=== PATIENT | female | born 1935 | race Caucasian/White ===

== ENCOUNTER → 2018-07-29 15:32 | Outpatient (CLI) | payer MEDICARE, OTHER ==
[2018-07-29 16:22] LABS: APPEARANCE HAZY (CLEAR); BILIRUBIN NEGATIVE (NEGATIVE); COLOR YELLOW (YELLOW); GLUCOSE NEGATIVE (NEGATIVE); KETONE NEGATIVE (NEGATIVE); NITRITE NEGATIVE (NEGATIVE); PH 5.5 (5.0-6.0); PROTEIN NEGATIVE (NEGATIVE); SPECIFIC GRAVITY 1.005 (1.005-1.020); UROBILINOGEN NORMAL (NORMAL)
== END | disposition home or self-care (01) ==
LOC: D.LABREF 15:32
PROVIDERS: Emergency Medicine
DX: R68.89 Other general symptoms and signs (principal)

== ENCOUNTER 2018-09-16 15:08 | Emergency (ER) | payer MEDICARE, OTHER ==
[~2018-09-16] VITALS: Ht 152.4 cm; Wt 67.3 kg
[2018-09-16 15:21] VITALS: Ht 152.4 cm; Wt 67.3 kg
[2018-09-16] MEDS ORDERED: K-TAB10 MEQ PO (15:26)
[2018-09-16] MEDS ORDERED: VITAMIN D31000 UNIT PO (15:26)
[2018-09-16] MEDS ORDERED: BUTISOL SODIUM30 MG PO (15:27)
[2018-09-16] MEDS ORDERED: COZAAR25 MG PO (15:27)
[2018-09-16] MEDS ORDERED: CELEXA40 MG PO (15:28)
[2018-09-16] MEDS ORDERED: PROTONIX40 MG PO (15:28)
[2018-09-16] MEDS ORDERED: ISOSORBIDE MONO30 M1 PO (15:29)
[2018-09-16] MEDS ORDERED: GORDON'S VITE480 G1 (15:30)
[2018-09-16] MEDS ORDERED: BUMEX2 MG PO (15:30)
[2018-09-16] MEDS ORDERED: GUAIFENESI100 MG/5 M PO (17:45)
[2018-09-16 18:21] VITALS: BP 132/80
== END 2018-09-16 18:22 | disposition home or self-care (01) ==
LOC: D.ER 15:08
DX: R51 Headache (principal)

== ENCOUNTER 2018-10-01 12:02 | Inpatient (IN) | payer MEDICARE, OTHER ==
[~2018-10-01] VITALS: Ht 157.5 cm; Wt 68.6 kg
--- NOTE | ~2018-10-01 | EC ---
PATIENT:NYA LEON DATE OF SERVICE: 10/01/18 SEX: F MEDICAL RECORD: [id number] DATE OF : [birth year] LOCATION:D.M2 D.212 AGE OF PATIENT: 83 ADMISSION DATE: 10/01/18 REFERRING PHYSICIAN: INTERPRETING PHYSICIAN: ADELINE SALVADOR MD ECHOCARDIOGRAM REPORT ECHO CHARGES 4 ECHO COMPLETE Date: 10/02/18 CLINICAL DIAGNOSIS: CHF HX CAD/CABG ECHOCARDIOGRAPHIC MEASUREMENTS (adult normal given) AC root (d.<3.7cm) 3.3 cm LV Septum d (<1.2 cm> 1.5 cm Valve Excursion 1.5 cm LV Septum (systole) 1.7 cm Left Atria (s.<4.0cm> 5.0 cm LVPW d(<1.2cm) 1.3 cm RV (d.<2.3cm) 6.3 cm LVPW (sytole) 1.5 cm LV diastole(<5.6CM) 6.7 cm MV E-F(>70mm/sec) cm LV systole 5.0 cm LVOT Diameter 1.5 cm MV exc.(>10mm) 2.0 cm Est.ejection fraction (50-75%) % DOPPLER: LVIT cm/sec A 75.0 cm/sec E 110 cm/sec LA cm/sec RVSP 30 mmHg LVOT 103 cm/sec AOP1/2T m/s Asc. Ao 141 cm/sec RVOT 109 cm/sec RA cm/sec PA 117 cm/sec AV Gradient Peak 7.99 mmHg AV Mean 5.10 mmHg AV Area 1.3 cm MV Gradient Peak 8.03 mmHg MV Mean 3.14 mmHg MV Area cm COMMENTS: Cross Cut Sawyer: Deny HANSEN Wetlands Technician: 1 Dr. Salvador TAPE# PACS Pericardial Effusion N DATE OF SERVICE: 10/02/2018 PROCEDURE: Echocardiogram. FINDINGS: 1. Left ventricular chamber size is within normal limits. Left ventricular systolic function is normal. Overall ejection fraction estimated at 55%. 2. Left atrium is dilated at 5.0 cm. Right atrium and right ventricular chamber sizes are moderately to severely dilated. 3. Valvular structures. The mitral valve demonstrates definite prolapse of the ECHOCARDIOGRAM REPORT [id number] NYA LEON posterior leaflet. This translates into a ciawmoiv-je-asfchl mitral regurgitation. The remaining valvular structures have normal structure and motion. 4. Doppler interrogation elsewise reveals eslm-bf-emjurkst tricuspid regurgitation, no other valvular insufficiency or stenosis. Pulmonary systolic pressure is estimated at 30 mmHg. 5. No evidence of pericardial effusion or left ventricular thrombus. TRANSINT:[id number] Voice Confirmation ID: [id number] DOCUMENT ID: [id number] ADELINE SALVADOR MD CC: [id number] DICTATION DATE: 10/02/18 1248 RN COMPLIANCE: 10/02/18 1420 ADM IN [facility] [address] [place] [address]
--- NOTE | ~2018-10-01 | CN ---
PATIENT NAME:NYA ALEXANDER MEDICAL RECORD: [id number] : 31 LOCATION:D. D.2129 ADMIT DATE: 10/01/18 ACCOUNT: [id number] CONSULTING PHYSICIAN: ADELINE CASANOVA MD REFERRING PHYSICIAN: ÁNGEL MORRIS MD DATE OF CONSULTATION: 10/01/2018 DIAGNOSES: 1. Shortness of breath, dyspnea on exertion. 2. Pneumonia. 3. Congestive heart failure, chronic systolic dysfunction. 4. Cardiomyopathy. 5. Coronary artery disease. 6. Status post coronary bypass graft surgery. 7. Abnormal ECG. 8. Hypertension. HISTORY OF PRESENT ILLNESS: Ms. Alexander presents with recurrent episodes of shortness of breath. She has been in the hospital 3 times and was treated for pneumonia, but not treated from a cardiac standpoint as well. She has a history of coronary artery disease, coronary bypass graft surgery 20 years ago. Her EKG suggests resting ischemia. She has been told in the past that her heart function is not good and that she has had heart failure. She has not had a recent evaluation of this. PHYSICAL EXAMINATION: GENERAL APPEARANCE: Well-nourished, well-developed, appears stated age. Level of distress, comfortable. PSYCHIATRIC: Mental status, alert, normal affect. Orientation, oriented to time, place and person. EYES: Lids and conjunctiva, noninjected. No discharge, no pallor. ENT: Lips, teeth, gums, normal dentition. Oropharynx, no cyanosis, no pallor. NECK: Carotid arteries, bilateral normal upstroke, no bruits, no thrills. JUGULAR VEINS: No jugular venous pressure or distention. CERVICAL LYMPH NODES: Nontender, nonenlarged. THYROID: Not enlarged. Nontender. No nodules. LUNGS: Respiratory effort, unlabored. CHEST: Normal curvature. No thoracic deformity. No chest wall tenderness. Percussion, resonant. Auscultation, clear. No wheezes, no rales, no rhonchi. CARDIOVASCULAR: Precordial exam, nondisplaced. No heaves or pericardial thrills. Rate and rhythm, regular. Heart sounds, normal S1, normal S2. No S3, no gallop, no rub. Systolic murmur, not heard. Diastolic murmur, not heard. EXTREMITIES: No cyanosis, no edema. Peripheral pulses, full and equal in all extremities, except as noted. No bruits appreciated. ABDOMEN: Soft, nondistended. Normal aorta. No bruit. Nontender. No masses. Liver, nontender, no hepatomegaly. Spleen, nontender, no splenomegaly. MUSCULOSKELETAL: No joint tenderness. No joint swelling. No erythema. NEUROLOGICAL: Normal gait, normal strength, normal tone. SKIN: Warm and dry. OVERALL IMPRESSION: Shortness of breath, dyspnea on exertion. Most likely, this is a combination of congestive heart failure as well as pneumonia. We will evaluate her with echocardiogram for her overall LV function, but most likely this is ischemic based due to her 20-year-old bypass graft or abnormal ECG suggestive of resting ischemia. We will need to proceed with coronary CONSULT REPORT [id number] NYA ALEXANDER A angiography in the future, but at this time we will get her breathing better with diuresis and IV antibiotics, see what her LV function is on the echocardiogram, and then proceed with coronary angiography in the future as well. We will adjust medications depending upon her ejection fraction. TRANSINT:[id number] Voice Confirmation ID: [id number] DOCUMENT ID: [id number] ADELINE CASANOVA MD CC: [id number] DICTATION DATE: 10/01/181957 STRIPPER AND PRINTER: 10/02/18 0023 ADM IN [facility] [address] [place] [address]
--- NOTE | ~2018-10-01 | OP ---
PATIENT NAME: NYA LEON MEDICAL RECORD: [id number] :31 LOCATION:D.M2 D.2129 ADMISSION DATE:10/01/18 SURGEON: ADELINE CASANOVA MD DATE OF OPERATION: 10/04/2018 PROCEDURES: 1. PTCA and stent, left circumflex through patent vein graft. 2. Left heart catheterization. 3. Selective coronary angiography. 4. Vein graft angiography. 5. ENGEL angiography. 6. Left ventriculogram. INDICATION: Angina and coronary artery disease. PROCEDURE IN DETAIL: After informed consent was obtained with detailed description of risks and benefits as well as alternative therapies, the patient elected to proceed with angiogram and angioplasty. The right femoral area was prepped and draped in normal sterile fashion. The right femoral artery was cannulated via modified Seldinger technique with placement of 6-[place] sheath. All catheters were exchanged through this sheath. FINDINGS: Left ventriculogram performed in standard 30-degree DE LA CRUZ view reveals global hypokinesis throughout all segments. Overall ejection fraction is 30% to 35%. SELECTIVE CORONARY ANGIOGRAPHY: 1. Left main is with no significant angiographic disease. 2. Left anterior descending is totally occluded. 3. ENGEL to LAD is widely patent. Distal LAD is widely patent. 4. Left circumflex first obtuse marginal is totally occluded. 5. Vein graft to the marginal is widely patent; however, the obtuse marginal has 99% stenosis after the patent vein graft. 6. Right coronary is totally occluded. 7. Vein graft to the right coronary is totally occluded. PTCA AND STENT OF THE LEFT CIRCUMFLEX: Through the patent vein graft, the circumflex was addressed with a 2.0 x 18 mm Pj stent. Result was 0% residual stenosis. OVERALL IMPRESSION: Successful PTCA and stent of the left circumflex, going from 99% initial stenosis to 0% residual. TRANSINT:[id number] Voice Confirmation ID: [id number] DOCUMENT ID: [id number] ADELINE CASANOVA MD CC: [id number] DICTATION DATE: 10/04/18 165 BILLBOARD POSTER HELPER: 10/04/18 1830 ADM IN [place] [id number]
--- NOTE | ~2018-10-01 | HEMODYNAMI ---
PATIENT:NYA LEON MEDICAL RECORD: [id number] : 31 LOCATION:[address] ADMISSION DATE: 10/01/18 Generatedon:10/04/201816:50 Patient name: NYA LEON Patient #: [id number] SSN: DO B: 1935 Date of study: 10/04/2018 Page: Of Hemodynamic Procedure Report Patient Data Patient Demographics Procedure consent was obtained First Name: NYA Gender: Female Last Name: EDWARD : 1935 [facility] Initial: A Age: 83 year(s) Patient #: [id number] Race: Unknown Additional ID: [id number] Contact details [address]: [address] [place] [address] State: [place] City: [place] Zip code: [address] Past Medical History Allergies: No known allergies Admission Admission Data Admission Date: 10/01/2018 Admission Time: 14:26 Room #: 2129 Lab Results Lab Result Date: 10/04/2018 Lab Result Time: 0:00 Biochemistry Name Units Result Min Max BUN mg/dl 16 --(---*)-- 7 18 Creatinine mg/dl 0.9 --(-*--)-- 0.6 1.3 CBC Name Units Result Min Max Hemoglobin g/dl 11.1 *-(----)-- 13.5 17.5 Procedure Procedure Types Cath Procedure Diagnostic Procedure LHC LHC w/Coronaries w/Grafts PCI Procedure AMI/SVG/CARBON ELECTRODES SUPERVISOR PTCA or Stent SVG-BMS/GIRISH Initial Procedure Description Procedure Date Procedure Date: 10/04/2018 Procedure Start Time: 16:11 Procedure End Time: 16:50 Procedure Staff Name Function Steven Salvador MD Performing Physician Frank Philip RT Monitor Chata Dinh RN Nurse Denis Hennessy RT Scrub Deion Lizama RN Publication Specialist Procedure Data Cath Procedure Fluoroscopy Diagnostic fluoroscopy Total fluoroscopy Time: 7.4 time: 7.4 min min Diagnostic fluoroscopy Total fluoroscopy dose: 925 dose: 925 mGy mGy Contrast Material Contrast Material Type Amount (ml) Isovue 300 160 Entry Location Entry Primary Successful Side Size Upsize Upsize Entry Closure Succes sful Closure Location (Fr) 1 (Fr) 2 (Fr) Remarks Device Remarks Femoral Right 5 Fr 6 Fr Exoseal artery Short Estimated blood loss: 10 ml Diagnostic catheters Device Type Used For End Catheter Placement MULTIPACK Pigtail 5 Fr Procedure catheter MULTIPACK JL 4.0 5Fr Procedure catheter MULTIPACK 3DRC 5Fr Procedure catheter DIAGNOSTIC AR2 MOD 5 Fr Procedure catheter ([id number]) Procedure Complications No complications Procedure Medications Medication Administration Route Dosage Oxygen etCO2 Nasal cannula 2 l/min Heparin Flush Bag added to field 2 bags (1000units/500ml NS) 0.9% NaCl I.V. 100 ml/hr Lidocaine 2% added to field 20 Radial Cocktail added to field 1 syringe (Verapomil 2mg/Nitro 400mcg/Heparin 1500units) Versed I.V. 2 mg Fentanyl I.V. 50 mcg Heparin Bolus I.V. 4000 units Integrilin (Bolus I.V. 6.2 ml 2mg/ml) Plavix P.O. 600 mg Fentanyl I.V. 50 mcg Versed I.V. 2 mg Hemodynamics Rest HGB: 11.1 (g/dl) Heart Rate: 84 (bpm) Pressure Samples Time Site Value (mmHg) Purpose Heart Use Rate(bpm) 16:21 AO 127/37(72) Snapshot 72 16:33 AO 109/57(78) Snapshot 72 Snapshots Pre Cath Intra NCS Post Cath Vital Signs Time Heart Resp SPO2 etCO2 NIBP (mmHg) Rhythm Pain Sedation Rate (ipm) (%) (mmHg) Status Level (bpm) 16:00:29 89 16 97 30 147/75(110) NSR 0 (11) 10(A) , No pain 16:04:50 82 17 97 30 124/64(91) NSR 0 (11) 10(A) , No pain 16:09:10 84 16 96 37.7 121/58(84) NSR 0 (11) 10(A) , No pain 16:13:28 81 16 96 39.2 120/66(96) NSR 0 (11) 9(A) , No pain 16:17:52 83 19 96 30 114/59(89) NSR 0 (11) 9(A) , No pain 16:22:08 77 19 98 5.2 117/60(97) NSR 0 (11) 9(A) , No pain 16:26:28 82 16 98 38 123/68(94) NSR 0 (11) 9(A) , No pain 16:30:46 80 17 96 38 123/63(91) NSR 0 (11) 10(A) , No pain 16:35:05 91 15 97 35.4 133/80(98) NSR 0 (11) 9(A) , No pain 16:39:27 90 17 98 0 124/78(111) NSR 0 (11) 9(A) , No pain 16:43:49 95 18 97 0 126/72(98) NSR 0 (11) 9(A) , No pain 16:48:07 92 17 98 0 137/84(113) NSR 0 (11) 10(A) , No pain Medications Time Medication Route Dose Verified Delivered Reason Not es Effectiveness by by 15:57:13 Oxygen etCO2 2 l/min Steven Albarran Per physician Nasal [place] Lizama RN cannula 15:57:20 Heparin Flush added 2 bags Steven Albarran used for Bag to [place] Lizama RN procedure (1000units/500ml field NS) 15:57:29 0.9% NaCl I.V. 100 Stevenkhushbu Albarran Per physician ml/hr [place] Lizama RN 15:57:41 Lidocaine 2% added 20ml Steven Albarran for local to vial [place] Lizama RN anesthetic field 16:02:29 Radial Cocktail added 1 Steven Albarran used for (Verapomil to syringe [place]esto Lizama scorekeeper 2mg/Nitro field 400mcg/Heparin 1500units) 16:10:30 Versed I.V. 2 mg Steven Márquezyla for sedation Modesto Dinh RN 16:10:36 Fentanyl I.V. 50 mcg Steven Chata for sedation [place] Dinh RN 16:26:21 Heparin Bolus I.V. 4000 Steven Chata for alex ified units Modesto Dinh anticoagulation with Dr. MAGDALENO Salvador 16:26:36 Integrilin I.V. 6.2 ml Steven Márquezyla for was sandi (Bolus 2mg/ml) Modesto Dinh antiplatelet 3.7mL RN therapy 16:28:28 Plavix P.O. 600 mg Steven Márquezyla for [place] Dinh antiplatelet RN therapy 16:30:45 Fentanyl I.V. 50 mcg Steven Brizuela for sedation Modesto Dinh RN 16:30:56 Versed I.V. 2 mg Steven Márquezyla for sedation Mod[place] Dinh RN Procedure Log Time Note 15:30:10 Deion Lizama RN sent for patient. Start room use. 15:46:11 Time tracking: Regular hours (M-F 7:00 - 5:00) 15:46:15 Plan of Care:Hemodynamics will remain stable., Cardiac rhythm will remain stable., Comfort level will be maintained., Respiratory function will remain adequate., Patient/ family verbilizes understanding of procedure., Procedure tolerated without complication., Recovers from procedure without complications.. 15:57:13 Oxygen 2 l/min etCO2 Nasal cannula was administered by Deion Lizama RN; Per physician; 15:57:20 Heparin Flush Bag (1000units/500ml NS) 2 bags added to field was administered by Deion Lizama RN; used for procedure; 15:57:29 0.9% NaCl 100 ml/hr I.V. was administered by Deion Lizama RN; Per physician; 15:57:41 Lidocaine 2% 20ml vial added to field was administered by Deion Lizama RN; for local anesthetic; 15:59:12 Patient received from PCU to CCL 1 Alert and oriented. Tansferred to table in Supine position. 15:59:13 Warm blankets applied, and jony hugger turned on for patient comfort. 15:59:13 Correct patient and procedure confirmed by team. 15:59:15 Signed procedure consent form obtained from patient. 15:59:16 ECG and BP/O2 sat monitors applied to patient. 15:59:16 Vital chart was started 15:59:17 Baseline sample Acquired. 15:59:21 Rhythm: sinus rhythm 15:59:24 Full Disclosure recording started 15:59:30 H&P Date Dictated: 10/04/2018 Within 30 days and on chart.. 15:59:31 Pre-procedure instructions explained to patient. 15:59:33 Pre-op teaching completed and patient verbalized understanding. 16:00:59 Family in waiting room. 16:01:01 Patient NPO since Midnight. 16:01:08 Patient allergic to No known allergies 16:01:11 Is the patient allergic to Iodine/contrast media? No. 16:01:17 Is patient on blood thinner?No 16:01:18 Patient diabetic? No. 16:01:20 ----Pre-sedation anethsthesia assessment.---- 16:01:23 Previous problem with sedation/anesthesia? No ? 16:01:25 Snore? Yes 16:01:32 Sleep apnea? No 16::39 Deviated septum? No 16::40 Opens mouth fully? Yes 16:01:42 Sticks out tongue? Yes 16:01:55 Airway obstruction? Yes COPD 16:02:00 Dentures? No ? 16:02:25 Pre procedure: right dorsailis pedis pulse 2+ Normal; easily identifiable; not easily obliterated 16:02:29 Radial Cocktail (Verapomil 2mg/Nitro 400mcg/Heparin 1500units) 1 syringe added to field was administered by Deion Lizama RN; used for procedure; 16:02:44 Modified Salazar's test Ulnar < 7 seconds 16:02:48 Patient pain scale 0/10 ?. 16:06:50 IV patent on arrival in left forearm with 0.9% NaCl at KVO. 16:06:52 Lab results completed and on chart. 16:07:01 Right Radial & Right Groin area was prepped with chlora-prep and draped in sterile fashion 16:07:03 Sharps counted by scrub and verified by R.N. 16:07:04 Alarms reviewed by R. N. 16:07:21 --------ALL STOP TIME OUT------ 16:07:22 Final Timeout: patient, procedure, and site verified with staff and physician. All members of the team are in agreement. 16:07:24 Right Radial & Right Groin site verified by team. 16:07:33 Maximum allowable Isovue 300 dose 300ml. Physician notified. (300ml for normal creatinines. For patients with creatinine of 1.7 or higher multiply weight(kg) x 5 divided by creatinine.) 16:07:43 Fire Safety Assessment: A--An alcohol-based skin anteseptic being used preoperatively., C--Open oxygen or nitrous oxide is being used., D--An ESU, laser, or fiber-optic light is being used. 16:07:46 Physical assessment completed. ASA score P 2 - A patient with mild systemic disease as per Steven Salvador MD. 16:07:51 Sedation plan: IV Moderate Sedation Medication:Versed, Fentanyl 16:08:04 Use device set Radial Dx or PCI 16:08:06 Tegaderm 4 x 4 (1626W) opened to sterile field. 16:08:07 ACIST Manifold (57638) opened to sterile field. 16:08:07 ACIST Hand Control (73610) opened to sterile field. 16:08:09 ACIST Syringe (72378) opened to sterile field. 16:08:09 Medline Cath Pack ([id number]) opened to sterile field. 16:08:10 Bag Decanter (2002S) opened to sterile field. 16:08:11 DIAGNOSTIC WIRE .035 260cm J wire (725583) opened to sterile field. 16:08:12 MBrace Wrist Support ([id number]) opened to sterile field. 16:08:14 SHEATH 6FR Slender (90-1131) opened to sterile field. 16:10:30 Versed 2 mg I.V. was administered by Chata Dinh RN; for sedation; 16:10:36 Fentanyl 50 mcg I.V. was administered by Chata Dinh RN; for sedation; 16:10:59 Procedure started. 16:11:04 Local anesthetic to right radial artery with Lidocaine 2% by Steven Salvador MD.INITIAL ACCESS ONLY 16:12:11 Unable to advance wire due to radial loop. 16:12:17 Local anesthetic to right femoral artery with Lidocaine 2% by Steven Salvador MD.ADDITIONAL ACCESS 16:13:44 A 5 Fr sheath was inserted into the Right Femoral artery 16:20:10 Use device set Multipack Set 16:20:12 DIAGNOSTIC Multipack 5Fr catheter set (SB4823) opened to sterile field. 16:20:13 SHEATH 5FR Emelle (CRW470) opened to sterile field. 16:20:19 A MULTIPACK Pigtail 5 Fr catheter was advanced over the wire and used for Procedure. 16:20:24 LV angiography performed. 16:20:26 LV gram done using DE LA CRUZ 16:20:35 EF : 30 % 16:20:59 Injector settings: Ml/sec: 10, Volume: 20, 16:21:03 Catheter removed. 16:21:09 A MULTIPACK JL 4.0 5Fr catheter was advanced over the wire and used for Procedure. 16:21:19 LCA angiography performed. 16:21:24 Catheter removed. 16:21:42 Use device set MODESTO PCI 16:21:44 SHEATH 6FR Emelle (GEU957) opened to sterile field. 16:21:52 CHOICE PT Extra Support 182cm wire ([id number]) opened to sterile field. 16:21:58 INFLATOR Merit BasixCompak (CZ7307) opened to sterile field. 16:22:14 A MULTIPACK 3DRC 5Fr catheter was advanced over the wire and used for Procedure. 16:22:26 ENGEL to Diag angiography performed. 16:23:04 RCA angiography performed. 16:23:23 Catheter removed. 16:23:34 A DIAGNOSTIC AR2 MOD 5 Fr catheter ([id number]) was advanced over the wire and used for Procedure. 16:23:51 SVG to Circ angiography performed. 16:24:30 SVG to RCA occluded. 16:24:34 Catheter removed. 16:24:37 GUIDE 6FR AR 2.0 catheter ([id number]) opened to sterile field. 16:25:50 Sheath upsized to a 6 Fr Short. 16:26:01 6 Fr AR 2 guide catheter was inserted over the wire 16:26:21 Heparin Bolus 4000 units I.V. was administered by Chata Dinh RN; for anticoagulation; verified with Dr. Salvador 16:26:36 Integrilin (Bolus 2mg/ml) 6.2 ml I.V. was administered by Chata Dinh RN; for antiplatelet therapy; wasted 3.7mL 16::59 CPTXS wire advanced. 16:27:49 Lab Result : Hemoglobin 11.1 g/dl 16::49 Lab Result : Creatinine 0.9 mg/dl 16::49 Lab Result : BUN 16 mg/dl 16:28:28 Plavix 600 mg P.O. was administered by Chata Dinh RN; for antiplatelet therapy; 16:28:28 Wire advanced across lesion. 16:29:22 Inflate balloon Inflation number: 1 A EUPHORA 2.0 x 15 Balloon ([id number]) was prepped and advanced across the Aorta Left -> 1st Ob Sultana, then inflated to 15 VISHNU for 0:10 (min:sec). 16:29:42 Multiple inflations made at 15 Atms. 16:30:43 Balloon removed over the wire. 16:30:45 Fentanyl 50 mcg I.V. was administered by Chata Dinh RN; for sedation; 16:30:45 Place stent Inflation Number: 2 A SHITAL RX 2.0 x 18 stent ([id number]) was prepped and advanced across the Aorta Left -> 1st Ob Sultana. The stent was deployed at 11 VISHNU for 0:10 (min:sec). 16:30:56 Versed 2 mg I.V. was administered by Chata Dinh RN; for sedation; 16:36:23 Inflation number: 3 The stent balloon was then re-inflated across the Aorta Left -> 1st Ob Sultana to 8 VISHNU for 5:00 (min:sec). 16:36:35 Timer 1 started at 4:31 PM, stopped at 4:36 PM, duration 00:05:09 sec. 16:36:46 Stent catheter was removed intact over wire. 16:36:47 Wire removed. 16:37:08 CHOICE PT Extra Support J 300cm guide wire ([id number]) opened to sterile field. 16:37:22 CPTXS 300 wire advanced. 16:37:40 Wire advanced across lesion. 16:38:45 Inflate balloon Inflation number: 4 A EMERGE OTW 2.0 x 15 balloon ([id number]) was prepped and advanced across the Aorta Left -> 1st Ob Sultana, then inflated to 8 VISHNU for 0:10 (min:sec). 16:44:59 Inflation number: 5 The EMERGE OTW 2.0 x 15 balloon ([id number]) was reinflated across the Aorta Left -> 1st Ob Sultana, to 8 VISHNU for 5:00 (min:sec). 16:45:36 Timer 1 started at 4:38 PM, stopped at 4:45 PM, duration 00:07:07 sec. 16:47:17 Balloon removed over the wire. 16:47:18 Wire removed. 16:47:19 Guide catheter removed. 16:47:39 EXOSEAL 6Fr (EX600) opened to sterile field. 16:47:51 Sheath removed intact; hemostasis achieved with Exoseal to the Right Femoral artery. 16:47:54 Procedure ended.(Physican Out) 16:48:34 Fluoroscopy time 07.40 minutes. 16:48:39 Fluoroscopy dose: 925 mGy 16:48:39 Flurop Dose total: 925 16:49:22 Contrast amount:Isovue 300 160ml. 16:49:24 Sharps counted by scrub and verified by R.N. 16:49:25 Insertion/operative site no bleeding no hematoma. 16:49:29 Post-op/insertion site Right Femoral artery dressed using a 4 x 4 and Tegaderm. 16:49:31 Post Procedure Pulses reassessed and unchanged 16:49:33 Post-procedure physical assessment completed. ASA score P 2 - A patient with mild systemic disease as per Steven Salvador MD. 16:49:35 Post procedure rhythm: unchanged. 16:49:38 Estimated blood loss: 10 ml 16:49:41 Post procedure instruction explained to patient.Patient verbalizes understanding. 16:49:41 Patient needs reinforcement of post procedure teaching. 16:49:53 Procedure type changed to Cath procedure, Diagnostic procedure, LHC, LHC w/Coronaries w/Grafts, PCI procedure, AMI/SVG/CARBON ELECTRODES SUPERVISOR PTCA or Stent, SVG-BMS/GIRISH Initial 16:49:54 Procedure and supply charges have been captured, reviewed, submitted and are correct. 16:49:58 Procedure Complication : No complications 16:50:01 Vital chart was stopped 16:50:01 See physician's report for complete and final results. 16:50:09 Report given to PCU. 16:50:14 Patient transfered to PCU with Bed. 16:50:17 Procedure ended. 16:50:17 Full Disclosure recording stopped 16:50:26 End room use (Document Last) Intervention Summary Intervention Notes Time ActionType Lesion and Equipment Used Action# Pressure Duration Attributes 16:29:22 Inflate Aorta Left EUPHORA 2.0 x 1 15 00:10 balloon -> 1st Ob 15 Balloon Sultana ([id number]) 16:30:45 Place stent Aorta Left SHITAL RX 2.0 x 2 11 00:10 -> 1st Ob 18 stent Sultana ([id number]) 16:36:23 Reinflate Aorta Left SHITAL RX 2.0 x 3 8 05:00 stent -> 1st Ob 18 stent balloon Sultana ([id number]) 16:38:45 Inflate Aorta Left EMERGE OTW 2.0 4 8 00:10 balloon -> 1st Ob x 15 balloon Sultana ([id number]) 16:44:59 Reinflate Aorta Left EMERGE OTW 2.0 5 8 05:00 balloon -> 1st Ob x 15 balloon Sultana ([id number]) Device Usage Item Name Manufacture Quantity Catalog Number Hospital Part Current M inimal Lot# / Charge Number Stock Stock Serial# Code Tegaderm 4 x 4 3M 1 [id number] 196646 560870 571606 5 (1626W) ACIST Manifold Acist 1 28996 399578 508690 662810 5 (42655) Medical Systems Inc ACIST Hand Acist 1 89178 182998 282745 685860 5 Control Medical (33930) Systems Inc ACIST Syringe Acist 1 03775 232896 297546 581692 2 0 (27862) Medical Systems Inc Medline Cath Medline 1 [id number] 459160 34898 239036 5 Pack (ATVI94450) Bag Decanter Microtek 1 2001S 057848 29986 390975 5 () Medical Inc. DIAGNOSTIC St Dhruv 1 799738 609448 966800 596241 3 0 WIRE .035 260cm J wire (108534) MBrace Wrist Advanced 1 140-0250-00 965463 47171 340714 5 Support Vascular ([id number]) Dynamics SHEATH 6FR Terumo 1 [id number] 233638 231490 415857 5 Slender (80-1060) DIAGNOSTIC Cardinal 1 YL3560 578344 42895 603603 3 0 Multipack 5Fr Health catheter set (TF7917) SHEATH 5FR Terumo 1 JZG453 464887 426474 281116 5 Emelle (DXW620) MULTIPACK Cardinal 1 254760 5 Pigtail 5 Fr Health catheter MULTIPACK JL Cardinal 1 818154 5 4.0 5Fr Health catheter SHEATH 6FR Terumo 1 PVK958 643199 103305 690627 4 0 Emelle (WXG327) CHOICE PT [place] 1 [id number] 740983 454511 183884 5 Extra Support Scientific 182cm wire ([id number]) INFLATOR Merit Merit 1 CB1142 110941 922699 761588 1 5 [facility] (DO9921) MULTIPACK 3DRC Cardinal 1 122617 5 5Fr catheter Health DIAGNOSTIC AR2 Cardinal 1 [id number] 006968 283898 557815 2 0 MOD 5 Fr Health catheter (191733O) GUIDE 6FR AR Medtronic 1 [id number] 125146 49030 574270 1 2.0 catheter (QZ0EJ57) EUPHORA 2.0 x Medtronic 1 [id number] 693008 925222 969539 5 [id number] 15 Balloon ([id number]) SHITAL RX 2.0 x Medtronic 1 [id number] 867277 2389390 124068 5 [id number] 18 stent ([id number]) CHOICE PT [place] 1 [id number] 897643 769378 068061 5 Extra Support Scientific J 300cm guide wire ([id number]) EMERGE OTW 2.0 [place] 1 [id number] 416945 898792 835782 5 [id number] x 15 balloon Scientific ([id number]) EXOSEAL 6Fr Cardinal 1 EX600 557931 236714 270736 1 0 (EX600) Health Signature Audit [place] Stage Time Signature Unsigned Intra-Procedure 10/04/2018 Frank Philip 4:50:46 PM RT(R) Signatures Monitor : Frank Philip RT Signature : Date : Time : [address] [address]
[~2018-10-01 12:02] MED LIST: BUMEX2 MG PO; BUTISOL SODIUM30 MG PO; CELEXA40 MG PO; COZAAR25 MG PO; GORDON'S VITE480 G1; GUAIFENESI100 MG/5 M PO; ISOSORBIDE MONO30 M1 PO; K-TAB10 MEQ PO; PROTONIX40 MG PO; VITAMIN D31000 UNIT PO
[2018-10-01 12:31] LABS: HEMATOCRIT 32.9 % (36.0-48.0); HEMOGLOBIN 10.9 g/dL (12-16); LYMPHOCYTES 18.2 % (15-50); MCH 30.6 pg (26.0-34.0); MCHC 33.1 g/dL (31.0-37.0); MCV 92.4 fL (80.0-100.0); MEAN PLATELET VOLUME 9.6 fL (7.4-10.4); NEUTROPHILS 70.4 % (40-80); PLATELET COUNT 173 10x3/uL (130-400); RBC 3.56 10x6/uL (4.00-5.40); WBC 7.7 10x3/uL (4.8-10.8)
[2018-10-01 12:51] LABS: ALBUMIN 3.8 g/dL (3.4-5.0); ALKALINE PHOSPHATASE 97 U/L (46-116); ALT (SGPT) 18 U/L (10-68); BILIRUBIN - TOTAL 0.72 mg/dL (0.2-1.3); CALC OSMOLALITY 278 mosm/kg (275-300); CALCIUM 9.2 mg/dL (8.5-10.1); CARBON DIOXIDE 32.8 mmol/L (21.0-32.0); CHLORIDE - SERUM 98 mmol/L (98-107); CREATININE - SERUM 0.7 mg/dL (0.6-1.3); GLUCOSE 119 mg/dL (74-106); POTASSIUM - SERUM 3.5 mmol/L (3.5-5.1); PROTEIN - SERUM 8.2 g/dL (6.4-8.2); SODIUM 139 mmol/L (136-145); UREA NITROGEN 12 mg/dL (7-18); eGFR NON AFRICAN AMERICAN 84 mL/min (90-120)
[2018-10-01 13:03] LABS: CKMB 1.6 U/L (0.0-3.6); CREATINE KINASE 99 UL (21-215); PRO BNP 4756 pg/mL (0-450)
[2018-10-01 13:04] LABS: INR 1.05 (0.85-1.17); PROTIME 13.2 SECONDS (11.6-15.0)
[2018-10-01 13:05] LABS: TROPONIN-I < 0.017 ng/mL (0.000-0.060)
[2018-10-01 14:41] VITALS: BP 137/68
--- NOTE | 2018-10-01 17:10 | NUR ---
RECEIVED PT FROM ER. ACCOMPANIED BY FAMILY. PT IS AAO BUT CONFUSED TO SITUATION. PT IS UP WITH ASSIST. FAMILY AT BEDSIDE. RR EVEN AND UNLABORED ON 2L 02. L.FOR PIV IS SALINE LOCKED. NO S/S OF DISTRESS NOTED. QUICK START, MED REQ, AND HISTORY COMPLETED. WILL CTM.
[2018-10-01 17:31] VITALS: BP 118/62; BMI 29.1
--- NOTE | 2018-10-01 19:00 | MORECARE ---
CASE MANAGEMENT DISCHARGE SUMMARY PATIENT: NYA LEON UNIT: [id number] ADM DATE: 10/01/18 AGE: 83 : 33 SEX: F ROOM/BED: D.2129 AUTHOR: MIGUEL GARCIA PHYSICIAN: REFERRING PHYSICIAN: ÁNGEL MORRIS MD DATE OF SERVICE: 10/01/18 Discharge Plan Patient Name: NYA LEON Facility: [facility]:[place] : 1935 Planned Disposition: Home Anticipated Discharge Date: 10/03/18 Discharge Date: Expected LOS: 2 Initial Reviewer: [email or web address] Initial Review Date: 10/01/2018 Generated: 10/01/18 8:00 pm Patient Name: NYA LEON Page [id number] at 1900 All edits/amendments must be made on the electronic document DICTATION DATE: 10/01/181858 TRANSPORTATION DRIVER: VERNON 10/01/181858 RPT#: [id number] DC DATE: STATUS: ADM IN [facility] [address] [place] [address] END OF REPORT
--- NOTE | 2018-10-01 19:08 | MORECARE ---
CASE MANAGEMENT DISCHARGE SUMMARY PATIENT: NYA LEON UNIT: [id number] ADM DATE: 10/01/18 AGE: 83 : 33 SEX: F ROOM/BED: D.3482 AUTHOR: JOSEDOC PHYSICIAN: REFERRING PHYSICIAN: ÁNGEL MORRIS MD DATE OF SERVICE: 10/01/18 Discharge Plan Patient Name: NYA LEON Facility: [facility]:[place] : 1935 Planned Disposition: Home Anticipated Discharge Date: 10/03/18 Discharge Date: Expected LOS: 2 Initial Reviewer: [email or web address] Initial Review Date: 10/01/2018 Generated: 10/01/18 8:07 pm DCP- Discharge Planning Updated by [email or web address]: Cary Carlos on 10/01/18 6:[address] Patient Name: NYA LEON Admission Status: ER Accout number: [id number] Admission Date: 10-01-2018 : 1935 Admission Diagnosis: Attending: ÁNGEL MORRIS Current LOS: 1 Anticipated DC Date: 10-03-2018 Planned Disposition: Home Primary Insurance: MEDICARE A & B Discharge Planning Comments: CM met with patient and her daughter to complete initial dc planning assessment. CM educated patient on the CM role and verbal consent given by patient to complete assessment. Patient lives at her daughter's house and requires assistance with bathing, meals, and medication management. At discharge patient plans to return to her daughters house and feels this is a safe discharge. CM discussed availability of home health, rehab services, and medical equipment. [facility]. GLENNA discussed and patient signed GLENNA form in the ER to resume [facility] at time of discharge. Patient denied further known discharge needs at this time. CM will continue to follow and will assist as needed with dc plans/needs. Writer Producer: Cary Carlos RN,[facility] DCPIA - Discharge Planning Initial Assessment Updated by [email or web address]: Cary Carlos on 10/01/18 7:03 pm * Is the patient Alert and Oriented? Yes * How many steps to enter\exit or inside your home? Three * PCP DR. Acosta * Pharmacy [facility] * Preadmission Environment Home with Family * ADLs Partial Dependent * Partial ADLs (Assistance needed) Bathing Medication Management * Equipment Cane Nebulizer Oxygen Rolling Walker Wheelchair * Other Equipment Blood pressure cuff and pulse ox Patient wears O2 24/7 at home. * List name and contact numbers for known caregivers / representatives who currently or will assist patient after discharge: Shobha Sherman - daughter - [phone] Norman Kelly - daughter - [phone] * Verbal permission to speak to the caregivers and representatives has been obtained from the patient. Yes * Community resources currently utilized Home Health Other * Please name any agencies selected above. [facility] * Additional services required to return to the preadmission environment? No * Can the patient safely return to the preadmission environment? Yes * Has this patient been hospitalized within the prior 30 days at any hospital? No Last DP export: 10/01/18 6:00 p Patient Name: NYA LEON Page 26702 at 1908 All edits/amendments must be made on the electronic document DICTATION DATE: 10/01/181906 IRRIGATION SPECIALIST: VERNON 10/01/181906 RPT#: [id number] DC DATE: STATUS: ADM IN [facility] [address] [place] [address] END OF REPORT
[2018-10-01 19:54] VITALS: BP 128/61
[2018-10-01 23:55] VITALS: BP 106/42
--- NOTE | 2018-10-02 02:34 | NUR ---
RECIEVED UP IN BED WITH O2@ 2 LITERS PER N/C IN PLACE. ALERT AND ORIENTED. VERY [place]. C/O SOB. RT CALLED TO ASSESS AND SAT WNL. PT VERY ANXIOUS. CALLED DR. MORRIS WITH NEW ORDERS FOR BUMEX 2MG IV X ONE NOW. BUMEX GIVEN AND AND PT STATED SHE FELT BETTER. RESP EVEN AND UNLABORED. TELEMETRY IN PLACE. DENIES ANY OTHER NEEDS.
[2018-10-02 02:46] LABS: BASOPHILS 0.5 % (0-2); EOSINOPHILS 4.7 % (0-7); HEMATOCRIT 32.7 % (36.0-48.0); HEMOGLOBIN 10.6 g/dL (12-16); IMMATURE GRANULOCYTES 0.3 % (0-5); LYMPHOCYTES 22.4 % (15-50); MCHC 32.4 g/dL (31.0-37.0); MCV 92.6 fL (80.0-100.0); MEAN PLATELET VOLUME 10.3 fL (7.4-10.4); MONOCYTES 10.5 % (2-11); NEUTROPHILS 61.6 % (40-80); PLATELET COUNT 179 10x3/uL (130-400); RBC 3.53 10x6/uL (4.00-5.40); RDW 14.7 % (11.5-14.5); WBC 7.3 10x3/uL (4.8-10.8)
[2018-10-02 02:56] LABS: CALC OSMOLALITY 275 mosm/kg (275-300); CALCIUM 9.1 mg/dL (8.5-10.1); CARBON DIOXIDE 34.7 mmol/L (21.0-32.0); CHLORIDE - SERUM 98 mmol/L (98-107); CREATININE - SERUM 0.7 mg/dL (0.6-1.3); GLUCOSE 113 mg/dL (74-106); POTASSIUM - SERUM 3.1 mmol/L (3.5-5.1); SODIUM 138 mmol/L (136-145); UREA NITROGEN 11 mg/dL (7-18); eGFR NON AFRICAN AMERICAN 84 mL/min (90-120)
[2018-10-02 03:55] VITALS: BP 130/52
--- NOTE | 2018-10-02 07:15 | NUR ---
REPORT RECIEVED AND MORNING ROUNDING COMPLETE. PT SITTING UP IN BED AND STATES NO NEEDS AT THIS TIME. PT IS HARD OF HEARING. PT IS RECIEVING O2 VIA NC. PT HAS A LEFT FOREARM THAT IS SALINE LOCKED. PT STATES NO NEEDS AT THIS TIME. ASSESMENT DONE. CALL LIGHT WITHIN REACH AND BED IN LOWEST POSITION.
[2018-10-02 08:18] VITALS: BP 129/74
--- NOTE | 2018-10-02 10:49 | NUR ---
I have reviewed this patient and I concur with the Shift Assessment completed by the Licensed Practical Nurse today this shift.
[2018-10-02 12:04] LABS: % SATURATION 26 % (15-55); IRON 72 ug/dl (35-150); TOTAL IRON BIND CAPACITY 273 ug/dl (260-445); UNSAT IRON BIND CAPACITY 201 ug/dl (150-375)
[2018-10-02 12:08] VITALS: BP 114/55
--- NOTE | 2018-10-02 12:30 | NUR ---
PT'S IV LEAKING AROUND INSERTION SITE WHEN FLUSHED. PT STATES STINGS A LITTLE. DC PT'S LEFT FOREARM PIV.
[2018-10-02 12:57] VITALS: Ht 157.5 cm; Wt 68.6 kg
[2018-10-02 17:05] VITALS: BP 117/66
--- NOTE | 2018-10-02 17:09 | NUR ---
PT AND PT FAMILY REFUSES SCD'S BECAUSE PT GETS UP AND WALK THEY ARE WORRIED SHE WILL GET UP AND FORGET AND TRIP AND FALL.
--- NOTE | 2018-10-02 19:24 | NUR ---
INITIAL ROUNDS COMPLETED AT 1915 HRS. PT DENIED ANY DISCOFORT. BED ALARM IN USE.
[2018-10-02 19:44] VITALS: BP 101/53
--- NOTE | 2018-10-02 21:49 | NUR ---
ASSESSMENT COMPLETED AT 1940 HRS. VSS. SR PER CM HR 71. LUNGS DIMINISHED IN BASES BILAT. PT QAWALANGIN. O2 2LNC. LUNGS DIMINISHED IN BASES BILAT. BROWN. WEAK PEDAL PULSES. COMBS DRAINING DARK URINE. PM MED GIVEN. HAS C/O LEG CRAMPS AND OVERALL DISCOMFORT. LOWER LEGS WRAPPED IN HEATED BLANKET. TYLENOL 650MG PO GIVEN. SR UP X2, CALL LIGHT WITHIN REACH AND BED ALARM ON.
[2018-10-02 23:50] VITALS: BP 130/72
--- NOTE | 2018-10-02 23:54 | NUR ---
PT AWAKE; STATES SHE IS FEELING BETTER. SR UP X2,CALL LIGHT WITHIN REACH AND BED ALARM ON.
--- NOTE | 2018-10-03 01:49 | NUR ---
PT RESTING WITH EYES CLOSED. RESP EVEN AND REGULAR. SR UP X2, CALL LIGHT WITHIN REACH AND BED ALARM ON.
[2018-10-03 03:55] VITALS: BP 122/67
--- NOTE | 2018-10-03 04:19 | NUR ---
ASSSITED PT TO BR. GAIT UNSTEADY. LARGE AMOUNT OF FLATUS NOTED. ASSISTED BACK TO BED. SR UP X2, CALL LIGHT WITHIN REACH AND BED ALARM ON.
[2018-10-03 05:26] LABS: BASOPHILS 0.6 % (0-2); EOSINOPHILS 5.7 % (0-7); HEMATOCRIT 34.3 % (36.0-48.0); HEMOGLOBIN 11.1 g/dL (12-16); IMMATURE GRANULOCYTES 0.2 % (0-5); LYMPHOCYTES 20.5 % (15-50); MCH 30.2 pg (26.0-34.0); MCHC 32.4 g/dL (31.0-37.0); MCV 93.5 fL (80.0-100.0); MEAN PLATELET VOLUME 10.4 fL (7.4-10.4); MONOCYTES 12.9 % (2-11); NEUTROPHILS 60.1 % (40-80); PLATELET COUNT 186 10x3/uL (130-400); RBC 3.67 10x6/uL (4.00-5.40); RDW 14.5 % (11.5-14.5); WBC 6.2 10x3/uL (4.8-10.8)
[2018-10-03 05:56] LABS: CALCIUM 8.8 mg/dL (8.5-10.1); CARBON DIOXIDE 33.6 mmol/L (21.0-32.0)
[2018-10-03 05:58] LABS: CREATININE - SERUM 0.9 mg/dL (0.6-1.3); POTASSIUM - SERUM 3.6 mmol/L (3.5-5.1)
--- NOTE | 2018-10-03 06:18 | NUR ---
VSS THROUGHOUT NIGHT. SR PER CM. DENIES ANY LEG CRAMPS THIS AM. NEEDS MET;WILL CONTINUE TO MONITOR.
--- NOTE | 2018-10-03 07:15 | NUR ---
REPORT RECIEVED AND MORNING ROUNDING COMPLETE. PT LAYING IN BED IN SUPINE POSITION. EYES CLOSED BREATHING SHALLOW AND EVEN. PT IS WEARING HER NC AND RECIVEING 3L O2. CALL LIGHT WIHTIN REACH AND BED IN LOWEST POSITION.
--- NOTE | 2018-10-03 07:45 | NUR ---
PT CALLED AND IS COMPLAINING OF CHEST PAIN AND SOB. WENT IN AND ASSESED PT, ALSO ASKED NATHANIEL DOLAN TO COME IN WITH ME. LUNGS CLEAR BUT DIMINISHED. CALLED RT TO COME DO A BREATHING TREATMENT. PT STATES SHE TAKES BREATHING TREATMENTS 4X DAILY AT HOME. WILL CONTINUE TO MONITOR CLOSELY. CALL LIGHT WITHIN REACH.
[2018-10-03 08:34] VITALS: BP 128/78
[2018-10-03 11:20] VITALS: BP 121/67
--- NOTE | 2018-10-03 12:55 | NUR ---
I have reviewed this patient and I concur with the Shift Assessment completed by the Licensed Practical Nurse today this shift.
--- NOTE | 2018-10-03 15:19 | NUR ---
PT DOES NOT MEET COMBS CRITERIA. DISCUSSED WITH NURSE AND COMBS WILL BE REMOVED R/T NURSE DRIVEN PROTOCOL.
[2018-10-03 15:32] VITALS: BP 106/58
--- NOTE | 2018-10-03 17:27 | NUR ---
PER NURSE DRIVEN PROTOCOL REMOVED PT'S COMBS CATH. PT TOLERATED WELL PT ABLE TO GET UP AND USE THE BATHROOM WHEN NEEDED. NO OTHER NEEDS AT THIS TIME CALL LIGHT WITHIN REACH. DAUGHTER AT BEDSIDE.
--- NOTE | 2018-10-03 19:57 | NUR ---
RECIEVED UP IN BED WITH EYES OPEN AND TV ON. ALERT AND ORIENTED X4. ASKED QUESTION ABOUT PROCEDURE TOMORROW. EDUCATED ON PROCEDURE AND VOICED UNDERSTANDING. VERY [place]. BED ALARM IN PLACE. TEELEMETRY IN PLACE. DENIES ANY OTHER NEEDS.
[2018-10-03 21:11] VITALS: BP 98/46
--- NOTE | 2018-10-04 03:03 | NUR ---
RESTING N BED WITH EYES CLSOED, NO S/S OF DISTRESS OBSERVE.
[2018-10-04 03:55] VITALS: BP 123/61
--- NOTE | 2018-10-04 05:03 | NUR ---
IV STARTED TO LEFT WRIST ATTEMPTS X1 WITH 20 GA CATH. SL..
--- NOTE | 2018-10-04 07:23 | NUR ---
REPORT RECEIVED. WILL CONTINUE WITH POC. PT CURRENTLY LYING SEMI FOWLERS. CALL LIGHT W/I REACH. PT IS AAO AND UP WITH ASSIST. RR EVEN AND UNLABORED ON 2L 02. L.WRIST PIV IS SALINE LOCKED. PT IS NPO FOR HEART CATH THIS AM. PT DENIES ANY NEEDS AT THIS TIME. NO S/S OF DISTRESS NOTED. WILL CTM.
[2018-10-04 08:28] VITALS: BP 119/56
[2018-10-04 09:17] LABS: BASOPHILS 0.3 % (0-2); EOSINOPHILS 4.8 % (0-7); HEMOGLOBIN 11.3 g/dL (12-16); IMMATURE GRANULOCYTES 0.1 % (0-5); LYMPHOCYTES 23.1 % (15-50); MCH 30.2 pg (26.0-34.0); MCHC 32.3 g/dL (31.0-37.0); MCV 93.6 fL (80.0-100.0); MEAN PLATELET VOLUME 10.4 fL (7.4-10.4); MONOCYTES 8.8 % (2-11); NEUTROPHILS 62.9 % (40-80); PLATELET COUNT 189 10x3/uL (130-400); RBC 3.74 10x6/uL (4.00-5.40); RDW 14.7 % (11.5-14.5); WBC 6.8 10x3/uL (4.8-10.8)
[2018-10-04 09:32] LABS: ANION GAP 8.7 mmol/L (8-16); CALCIUM 9.3 mg/dL (8.5-10.1); CARBON DIOXIDE 33.6 mmol/L (21.0-32.0); CREATININE - SERUM 0.9 mg/dL (0.6-1.3); POTASSIUM - SERUM 3.3 mmol/L (3.5-5.1)
--- NOTE | 2018-10-04 10:39 | NUR ---
PREOP MEDICATIONS ADMINISTERED. WILL CTM.
[2018-10-04 12:11] VITALS: BP 114/60
--- NOTE | 2018-10-04 17:14 | NUR ---
PT RETURN FROM CLINICAL PHARMACOLOGIST. PT IS AAO AND LYING SUPINE. RIGHT FEM CATH SITE IS C/D/I WITH NO S/S OF HEMATOMA PRESENT. RR EVEN AND UNLABORED ON 2L 02. VSS AND WNL. UNDERGOING Q15MIN VITALS. PERIPHERAL PULSES EVEN AND BILATERAL. WILL CTM.
--- NOTE | 2018-10-04 18:20 | NUR ---
I have reviewed this patient and I concur with the Shift Assessment completed by the Licensed Practical Nurse today this shift.
--- NOTE | 2018-10-04 18:31 | NUR ---
CATH SITE IS C/D/I WITH NO S/S OF HEMATOMA PRESENT. RR EVEN AND UNLABORED ON 2L 02. PT IS RESTING AT THE MOMENT. NS INFUSING @150ML/HR VIA L.WRIST PIV. NO S/S OF DISTRESS NOTED. WILL CTM.
--- NOTE | 2018-10-04 19:32 | NUR ---
INTRODUCED SELF TO PATIENT, PATIENT NEEDED ASSISTANCE TO THE RESTROOM. HELPED PATIENT UP TO TOILET. RESP EVEN AND UNLABORED.
[2018-10-04 20:00] VITALS: BP 122/54
[2018-10-05 00:30] VITALS: BP 118/58
[2018-10-05 04:30] VITALS: BP 117/60
[2018-10-05 06:57] LABS: BASOPHILS 0.6 % (0-2); EOSINOPHILS 5.8 % (0-7); HEMATOCRIT 35.3 % (36.0-48.0); HEMOGLOBIN 11.1 g/dL (12-16); IMMATURE GRANULOCYTES 0.2 % (0-5); LYMPHOCYTES 18.3 % (15-50); MCH 29.8 pg (26.0-34.0); MCHC 31.4 g/dL (31.0-37.0); MCV 94.6 fL (80.0-100.0); MEAN PLATELET VOLUME 10.2 fL (7.4-10.4); MONOCYTES 9.3 % (2-11); NEUTROPHILS 65.8 % (40-80); PLATELET COUNT 186 10x3/uL (130-400); RBC 3.73 10x6/uL (4.00-5.40); RDW 14.7 % (11.5-14.5); WBC 6.2 10x3/uL (4.8-10.8)
[2018-10-05 07:20] LABS: ANION GAP 7.5 mmol/L (8-16); CREATININE - SERUM 0.9 mg/dL (0.6-1.3); POTASSIUM - SERUM 3.5 mmol/L (3.5-5.1)
[2018-10-05 08:17] VITALS: BP 119/60
[2018-10-05 10:17] LABS: FOLATE (FOLIC ACID) - SERUM >20.0 ng/mL (>3.0)
[2018-10-05] MEDS ORDERED: PLAVIX75 MG PO (10:34)
[2018-10-05] MEDS ORDERED: LEVAQUIN750 MG PO (10:39)
--- NOTE | 2018-10-05 11:27 | MORECARE ---
CASE MANAGEMENT DISCHARGE SUMMARY PATIENT: NYA LEON UNIT: [id number] ADM DATE: 10/01/18 AGE: 83 : 31 SEX: F ROOM/BED: D.8910 AUTHOR: JOSEDOC PHYSICIAN: REFERRING PHYSICIAN: ÁNGEL MORRIS MD DATE OF SERVICE: 10/05/18 Discharge Plan Patient Name: NYA LEON Facility: [facility]:[place] : 1935 Planned Disposition: Home with Home Health Anticipated Discharge Date: 10/05/18 Discharge Date: Expected LOS: 4 Initial Reviewer: [email or web address] Initial Review Date: 10/01/2018 Generated: 10/05/18 12:26 pm Comments DCP- Discharge Planning Updated by [email or web address]: Alf Hernández on 10/05/18 10:[address] Patient Name: NYA LEON Encounter No: [id number] : 1935 Primary Insurance: MEDICARE A & B Anticipated DC Date: 10-05-2018 Planned Disposition: Home with Home Health External Planned Provider: [facility] DCP follow-up note: CM MET WITH PT IN ROOM TO DISCUSS DISCHARGE NEEDS AND PLANNING. CM DISCUSSED AVAILABILITY OF HOME HEALTH, REHAB SERVICES AND MEDICAL EQUIPMENT. PT DENIES DISCHARGE NEEDS OTHER THAN HOME HEALTH RESUMPTION WITH ROBERT, PT'S DAUGHTER, ARMANDO, WANTED TO ENSURE HOUSECALLS WAS RESUMED ALSO. CM CHECKED ORDERS, NOTIFIED PT AND DAUGHTER . DAUGHTER TO TRANSPORT HOME AT DISCHARGE. IMPORTANT MESSAGE FROM MEDICARE PROVIDED AND EXPLAINED. CM NOTIFIED ELSA OF [facility] OF PT'S DISCHARGE FOR RESUMPTION OF HOME HEALTH CARE. CM PROVIDED HOSPITAL UPDATE WELL DISCHARGE INFORMATION. ARTIFACTS CONSERVATOR NURSE NOTIFIED. Alf Hernández CASE ELIGIO DCP- Discharge Planning Updated by [email or web address]: Cary Carlos on 10/01/18 6:[address] Patient Name: NYA LEON Admission Status: ER Accout number: [id number] Admission Date: 10-01-2018 : 1935 Admission Diagnosis: Attending: ÁNGEL MORRIS Current LOS: 1 Anticipated DC Date: 10-03-2018 Planned Disposition: Home Primary Insurance: MEDICARE A & B Discharge Planning Comments: CM met with patient and her daughter to complete initial dc planning assessment. CM educated patient on the CM role and verbal consent given by patient to complete assessment. Patient lives at her daughter's house and requires assistance with bathing, meals, and medication management. At discharge patient plans to return to her daughters house and feels this is a safe discharge. CM discussed availability of home health, rehab services, and medical equipment. Patient currently has [facility] and [facility] calls. GLENNA discussed and patient signed GLENNA form in the ER to resume [facility] at time of discharge. Patient denied further known discharge needs at this time. CM will continue to follow and will assist as needed with dc plans/needs. Organic Extractions Technician: Cary Carlos RN,[facility] DCPIA - Discharge Planning Initial Assessment Updated by [email or web address]: Cary Carlos on 10/01/18 7:03 pm * Is the patient Alert and Oriented? Yes * How many steps to enter\exit or inside your home? Three * PCP DR. Acosta * Pharmacy [facility] * Preadmission Environment Home with Family * ADLs Partial Dependent * Partial ADLs (Assistance needed) Bathing Medication Management * Equipment Cane Nebulizer Oxygen Rolling Walker Wheelchair * Other Equipment Blood pressure cuff and pulse ox Patient wears O2 24/7 at home. * List name and contact numbers for known caregivers / representatives who currently or will assist patient after discharge: Shobha Sherman - daughter - [phone] Norman Gilbert - daughter - [phone] * Verbal permission to speak to the caregivers and representatives has been obtained from the patient. Yes * Community resources currently utilized Home Health Other * Please name any agencies selected above. [facility] * Additional services required to return to the preadmission environment? No * Can the patient safely return to the preadmission environment? Yes * Has this patient been hospitalized within the prior 30 days at any hospital? No Coverage Notice Reviewer: [id number] Lobo Hernández Notice Issued Date-Time: 10/05/2018 11:15 Notice Type: IM Discharge Notice Notice Delivered To: Family Member Relationship to Patient: Daughter Water Taxi Operator Name: ARMANDO GILBERT Delivery Method: HAND - Hand Delivered Yoli Days: Prior Verbal Notification: Recipient Understood Notice: Yes Recipient Signature: Yes Med Rec Note Co-signed by Attending: Coverage Notice Comment: Last DP export: 10/01/18 6:07 p Patient Name: NYA LEON Page [id number] at 1127 All edits/amendments must be made on the electronic document DICTATION DATE: 10/05/181125 SPECIAL EDUCATION SUPERINTENDENT: VERNON 10/05/181125 RPT#: [id number] DC DATE: STATUS: ADM IN [facility] [address] [place] [address] END OF REPORT
--- NOTE | 2018-10-05 11:33 | MORECARE ---
CASE MANAGEMENT DISCHARGE SUMMARY PATIENT: NYA LEON UNIT: [id number] ADM DATE: 10/01/18 AGE: 83 : 33 SEX: F ROOM/BED: D.4690 AUTHOR: MIGUEL GARCIA PHYSICIAN: REFERRING PHYSICIAN: ÁNGEL MORRIS MD DATE OF SERVICE: 10/05/18 Discharge Plan Patient Name: NYA LEON Facility: [facility]:[place] : 1935 Planned Disposition: Home with Home Health Anticipated Discharge Date: 10/05/18 Discharge Date: Expected LOS: 4 Initial Reviewer: [email or web address] Initial Review Date: 10/01/2018 Generated: 10/05/18 12:33 pm Comments DCP- Discharge Planning Updated by [email or web address]: Alf Hernández on 10/05/18 10:[address] Patient Name: NYA LEON Encounter No: [id number] : 1935 Primary Insurance: MEDICARE A & B Anticipated DC Date: 10-05-2018 Planned Disposition: Home with Home Health External Planned Provider: [facility] DCP follow-up note: CM MET WITH PT IN ROOM TO DISCUSS DISCHARGE NEEDS AND PLANNING. CM DISCUSSED AVAILABILITY OF HOME HEALTH, REHAB SERVICES AND MEDICAL EQUIPMENT. PT DENIES DISCHARGE NEEDS OTHER THAN HOME HEALTH RESUMPTION WITH [facility]ENG, PT'S DAUGHTER, ARMANDO, WANTED TO ENSURE HOUSECALLS WAS RESUMED ALSO. CM CHECKED ORDERS, NOTIFIED PT AND DAUGHTER . DAUGHTER TO TRANSPORT HOME AT DISCHARGE. IMPORTANT MESSAGE FROM MEDICARE PROVIDED AND EXPLAINED. CM NOTIFIED ELSA OF [facility] OF PT'S DISCHARGE FOR RESUMPTION OF HOME HEALTH CARE. CM PROVIDED HOSPITAL UPDATE WELL DISCHARGE INFORMATION. PORTER BATH NURSE NOTIFIED. Alf Hernández CASE ELIGIO DCP- Discharge Planning Updated by [email or web address]: Cary Carlos on 10/01/18 6:[address] Patient Name: NYA LEON Admission Status: ER Accout number: [id number] Admission Date: 10-01-2018 : 1935 Admission Diagnosis: Attending: ÁNGEL MORRIS Current LOS: 1 Anticipated DC Date: 10-03-2018 Planned Disposition: Home Primary Insurance: MEDICARE A & B Discharge Planning Comments: CM met with patient and her daughter to complete initial dc planning assessment. CM educated patient on the CM role and verbal consent given by patient to complete assessment. Patient lives at her daughter's house and requires assistance with bathing, meals, and medication management. At discharge patient plans to return to her daughters house and feels this is a safe discharge. CM discussed availability of home health, rehab services, and medical equipment. Patient currently has [facility] and [facility] calls. GLENNA discussed and patient signed GLENNA form in the ER to resume [place] at time of discharge. Patient denied further known discharge needs at this time. CM will continue to follow and will assist as needed with dc plans/needs. Professional Volleyball Player: Cary Carlos RN,[facility] DCPIA - Discharge Planning Initial Assessment Updated by [email or web address]: Cary Carlos on 10/01/18 7:03 pm * Is the patient Alert and Oriented? Yes * How many steps to enter\exit or inside your home? Three * PCP DR. Acosta * Pharmacy [facility] * Preadmission Environment Home with Family * ADLs Partial Dependent * Partial ADLs (Assistance needed) Bathing Medication Management * Equipment Cane Nebulizer Oxygen Rolling Walker Wheelchair * Other Equipment Blood pressure cuff and pulse ox Patient wears O2 24/7 at home. * List name and contact numbers for known caregivers / representatives who currently or will assist patient after discharge: Shobha Lane - daughter - [phone] Norman Gilbert - daughter - [phone] * Verbal permission to speak to the caregivers and representatives has been obtained from the patient. Yes * Community resources currently utilized Home Health Other * Please name any agencies selected above[facility] * Additional services required to return to the preadmission environment? No * Can the patient safely return to the preadmission environment? Yes * Has this patient been hospitalized within the prior 30 days at any hospital? No External Providers External Provider: [facility] Next Contact Date: 10/05/2018 Service Request Date: Service Type: Resolution: Reviewer: Comments: Coverage Notice Reviewer: [email or web address] - Alf Hernández Notice Issued Date-Time: 10/05/2018 11:15 Notice Type: IM Discharge Notice Notice Delivered To: Family Member Relationship to Patient: Daughter Smoke Eater Name: ARMANDO GILBERT Delivery Method: HAND - Hand Delivered Yoli Days: Prior Verbal Notification: Recipient Understood Notice: Yes Recipient Signature: Yes Med Rec Note Co-signed by Attending: Coverage Notice Comment: Last DP export: 10/05/18 10:26 am Patient Name: NYA LEON Page [phone] at 1133 All edits/amendments must be made on the electronic document DICTATION DATE: 10/05/18 1133 MICRO COMPUTER SPECIALIST: VERNON 10/05/18 1133 RPT#: [id number] DC DATE: STATUS: ADM IN [facility] [address] [place] [address] END OF REPORT
--- NOTE | 2018-10-05 12:04 | NUR ---
DC GIVEN TO PT AND DAUGHTER
--- NOTE | 2018-10-05 12:10 | NUR ---
DC HOME PER PERSONAL CAR
== END 2018-10-05 12:14 | disposition home health service (06) | DRG 246 ==
LOC: D.ER 12:02 → D.EDHOLD 14:26 → D.M2 14:26 → D.EDHOLD 15:26 → D.M2 15:43
PROVIDERS: Family Medicine; Internal Medicine Interventional Cardiology; ADMIT Internal Medicine Nephrology; ATTEND Internal Medicine Nephrology
PROC: B2121ZZ Fluoroscopy of Single Coronary Artery Bypass Graft using Low Osmolar Contrast (ICD-10-PCS; 2018-10-04)
PROC: B2181ZZ Fluoroscopy of Left Internal Mammary Bypass Graft using Low Osmolar Contrast (ICD-10-PCS; 2018-10-04)
PROC: B2111ZZ Fluoroscopy of Multiple Coronary Arteries using Low Osmolar Contrast (ICD-10-PCS; 2018-10-04)
PROC: B2151ZZ Fluoroscopy of Left Heart using Low Osmolar Contrast (ICD-10-PCS; 2018-10-04)
PROC: 027034Z Dilation of Coronary Artery, One Artery with Drug-eluting Intraluminal Device, Percutaneous Approach (ICD-10-PCS; principal; 2018-10-04 16:00)
PROC: 4A023N7 Measurement of Cardiac Sampling and Pressure, Left Heart, Percutaneous Approach (ICD-10-PCS; 2018-10-04 16:00)
DX: I11.0 Hypertensive heart disease with heart failure (principal); J18.9 Pneumonia, unspecified organism; J96.22 Acute and chronic respiratory failure with hypercapnia; J96.21 Acute and chronic respiratory failure with hypoxia; J44.1 Chronic obstructive pulmonary disease with (acute) exacerbation; J44.0 Chronic obstructive pulmonary disease with (acute) lower respiratory infection; I50.23 Acute on chronic systolic (congestive) heart failure; I42.9 Cardiomyopathy, unspecified; I25.10 Atherosclerotic heart disease of native coronary artery without angina pectoris; R94.31 Abnormal electrocardiogram [ECG] [EKG]; Z86.73 Personal history of transient ischemic attack (TIA), and cerebral infarction without residual deficits; F32.9 Major depressive disorder, single episode, unspecified; F03.90 Unspecified dementia, unspecified severity, without behavioral disturbance, psychotic disturbance, mood disturbance, and anxiety; D64.9 Anemia, unspecified; E87.6 Hypokalemia